=== PATIENT | female | born 1970 | race Caucasian/White ===

== ENCOUNTER 2017-12-04 08:52 | Emergency (ER) | payer OTHER ==
[~2017-12-04] VITALS: Ht 162.6 cm; Wt 89.8 kg
[~2017-12-04 08:52] MED LIST: ACETAMINOPHEN-1 EAC1 PO
[2017-12-04] MEDS ORDERED: VITAMIN B-12500 MCG PO (09:01)
[2017-12-04] MEDS ORDERED: NORCO 5-325 TA1 EACH PO (10:02)
[2017-12-04] MEDS ORDERED: NORFLEX100 MG PO (10:02)
[2017-12-04 10:07] VITALS: BP 156/88
== END 2017-12-04 10:08 | disposition home or self-care (01) ==
LOC: M.ERS 08:52
DX: S16.1XXA Strain of muscle, fascia and tendon at neck level, initial encounter (principal); J45.909 Unspecified asthma, uncomplicated; I10 Essential (primary) hypertension; Z85.828 Personal history of other malignant neoplasm of skin; Z90.710 Acquired absence of both cervix and uterus; Z90.49 Acquired absence of other specified parts of digestive tract; Z88.2 Allergy status to sulfonamides; Z88.6 Allergy status to analgesic agent; Z88.8 Allergy status to other drugs, medicaments and biological substances; V49.49XA Driver injured in collision with other motor vehicles in traffic accident, initial encounter; Y93.89 Activity, other specified; Y92.89 Other specified places as the place of occurrence of the external cause; Y99.8 Other external cause status